=== PATIENT | female | born 1990 | race Hispanic/Latino ===

== ENCOUNTER 2024-05-13 18:33 | Emergency (ER) | payer SELFPAY ==
[~2024-05-13] VITALS: Ht 157.5 cm; Wt 113.4 kg
[2024-05-13 20:14] VITALS: PULSE 91; RESP 20; TEMP 99
[2024-05-13 21:43] LABS: CORONAVIRUS COVID-19 AG NEGATIVE (NEGATIVE); INFLUENZA A AG NEGATIVE (NEGATIVE); INFLUENZA B AG NEGATIVE (NEGATIVE); STREPTOCOCCUS GRP A ANTIGEN NEGATIVE (NEGATIVE)
[2024-05-13] MEDS ORDERED: PREDNISONE20 MG PO (22:09)
[2024-05-13] MEDS ORDERED: AZITHROMYCIN250 MG PO (22:09)
[2024-05-13] MEDS ORDERED: VENTOLIN HFA18 GM INH (22:09)
[2024-05-13 22:19] VITALS: BP 119/62; PULSE 74; RESP 18; TEMP 98.3; O2SAT 98
== END 2024-05-13 22:15 | disposition home or self-care (01) ==
LOC: ER 18:46
DX: R05.9 Cough, unspecified (principal); J02.9 Acute pharyngitis, unspecified; J45.909 Unspecified asthma, uncomplicated; Z11.52 Encounter for screening for COVID-19
CPT/HCPCS: 83518; 87070; 99284